=== PATIENT | male | born 1970 | race Caucasian/White ===

== ENCOUNTER 2017-08-27 07:47 | Day surgery (SDC) | payer OTHER ==
[2017-08-26 10:43] VITALS: BMI 29.1
[~2017-08-27 07:47] MED LIST: BUPIVACAINE HCL/PF (5 MG/ML) 30 ML VIAL IJ ONE; LIDOCAINE HCL/PF 2% SDV 5ML VIAL INF ONE
[2017-08-27 08:24] VITALS: BP 112/68; PULSE 62; TEMP 97.7
[2017-08-27] MEDS ORDERED: MIDAZOLAM HCL 2 MG/2 ML SINGLE DOSE VIAL ONE (09:27)
[2017-08-27] MEDS ORDERED: methylPREDNISolone ACET (DEPO) 80 MG/1 ML VIAL ONE (09:38)
[2017-08-27] MEDS ORDERED: BUPIVACAINE HCL/PF 0.5% (5MG/ML) 10 ML VIAL ONE ×2 (09:38→09:40)
[2017-08-27] MEDS ORDERED: LIDOCAINE HCL/PF 2% SDV 5ML VIAL ONE (09:52)
[2017-08-27] MEDS ORDERED: oxyCODONE HCL 5 MG TABLET PO PRN ×2 (10:20)
== END 2017-08-27 11:07 | disposition home or self-care (01) ==
LOC: JASU-SURG 07:47
PROVIDERS: ATTEND Orthopaedic Surgery
PROC: 3E0U33Z Introduction of Anti-inflammatory into Joints, Percutaneous Approach (ICD-10-PCS; principal; 2017-08-27)
DX: Z53.8 Procedure and treatment not carried out for other reasons (principal)

== ENCOUNTER 2017-09-03 09:31 | Day surgery (SDC) | payer OTHER ==
[2017-09-02 11:22] VITALS: BMI 29.1
[2017-09-03 10:01] VITALS: TEMP 98.5
[2017-09-03] MEDS ORDERED: LIDOCAINE HCL 2% (20ML MULTI-DOSE VIAL) NR ONE (10:42)
[2017-09-03] MEDS ORDERED: LIDOCAINE HCL/PF 2% SDV 5ML VIAL ONE (11:11)
[2017-09-03] MEDS ORDERED: PROPOFOL 20 ML ONE ×2 (11:11)
[2017-09-03] MEDS ORDERED: MIDAZOLAM HCL 2 MG/2 ML SINGLE DOSE VIAL ONE (11:12)
[2017-09-03] MEDS ORDERED: methylPREDNISolone ACET (DEPO) 80 MG/1 ML VIAL ONE (11:35)
[2017-09-03] MEDS ORDERED: methylPREDNISolone ACET (DEPO) 40 MG/1 ML VIAL ONE (11:35)
[2017-09-03] MEDS ORDERED: IOHEXOL 300 MG/ML INFUS..BTL IJ ONE (11:39)
[2017-09-03] MEDS ORDERED: BUPIVACAINE HCL/PF 0.5% (5MG/ML) 10 ML VIAL IJ ONE (11:40)
[2017-09-03] MEDS ORDERED: LIDOCAINE HCL 2% (50ML VIAL) INF ONE (11:40)
[2017-09-03] MEDS ORDERED: methylPREDNISolone ACET (DEPO) 80 MG/1 ML VIAL IJ ONE (11:40)
--- NOTE | 2017-09-03 12:04 | OP ---
Operative Note - Note: Operative Date: 09/03/17 Pre-Operative Diagnosis: osteoarthritis left hip-Pagets disease of bone Operation: Arthrogram and steroid injection left hip Findings: significant thinning and loss of acetabular articular cartilege Implants: none Post-Operative Diagnosis: Same as Pre-op Surgeon: Renato Wells Anesthesiologist/MASSEUR/MASSEUSE: Jenniffer Ball Anesthesia: General Estimated Blood Loss (mls): 0 Operative Report Dictated: Yes
--- NOTE | 2017-09-03 12:32 | OP ---
DATE OF OPERATION: 09/03/2017 PREOPERATIVE DIAGNOSES: Osteoarthritis of the left hip and Paget disease of bone. POSTOPERATIVE DIAGNOSES: Osteoarthritis of the left hip and Paget disease of bone. PROCEDURE PERFORMED: Arthrogram of the left hip with steroid injection. ANESTHESIA: General. ANESTHESIOLOGIST: Jenniffer Ball MD PROCEDURE: Patient was brought to the operating room, given a general anesthetic by mask, placed on the operating room table in a supine position. The left hip was then prepped and draped in the usual sterile fashion. Under fluoroscopic control the left hip was clearly identified. A 22-gauge spinal needle was then placed from an inferior to superior direction along the line of the femoral neck using fluoroscopic control to ascertain the exact position of the tip of the needle. After seeing that the needle appeared to be in the hip joint Omnipaque contrast was then used, inserted into the hip and the outline of the femoral neck and rim of the acetabulum were clearly identified. Certainty being that we were in the hip joint the same needle without moving position was then used to instill a mixture of lidocaine 100 mg, bupivacaine 5 mL of 0.5% and 80 mg of Depo-Medrol. This having been completed successfully the hip was put through a range of motion. Arthrogram was then read to show significant degeneration of the acetabular articular cartilage. Femoral head had a very normal-looking articular cartilage. The lateral aspect of the acetabulum had a large calcified osteophyte. At this point the procedure was terminated. A Band-Aid was applied to the left hip. Anesthesia was reversed and the patient was taken to the recovery room in stable condition. SNEHAL HU M.D. [id number]
[2017-09-03 12:59] VITALS: BP 120/85; PULSE 59
== END 2017-09-03 13:00 | disposition home or self-care (01) ==
LOC: JASU-SURG 09:31
PROVIDERS: ATTEND Orthopaedic Surgery
PROC: BQ01YZZ Plain Radiography of Left Hip using Other Contrast (ICD-10-PCS; principal; 2017-09-03 11:00)
DX: M16.12 Unilateral primary osteoarthritis, left hip (principal); M88.9 Osteitis deformans of unspecified bone
CPT/HCPCS: 73525; G0260; 76000-TC-FY